=== PATIENT | male | born 1990 | race American Indian/Alaskan Native ===

== ENCOUNTER 2021-04-06 21:48 | Emergency (ER) | payer SELFPAY ==
[2021-04-06 22:26] VITALS: BP 133/75
--- NOTE | 2021-04-07 00:56 | Emergency Department Report ---
ED Laceration HPI - HPI Chief Complaint: Wound/Laceration Stated Complaint: CUT ON HAND Time Seen by Provider: 04/07/21 00:27 Occurred When: Today Location: Upper Extremity Severity: mild Tetanus Status: Up to Date Laceration Symptoms: Yes Pain, No Numbness, No Weakness Other History: 31-year-old male was utilizing abdomen a camera tract resulting in a laceration to his right hand between the first and second phalanges. ED Review of Systems ROS: Stated complaint: CUT ON HAND Other details as noted in HPI Comment: All other systems reviewed and negative ED Past Medical Hx - Past Medical History Previous Medical History?: No - Surgical History Past Surgical History?: Yes Additional Surgical History: r acl 2020 Laceration Physical Exam - Exam General: Vital signs noted. No distress. Alert and acting appropriately. Wound Length (cm): 2 Laceration Location: Upper Extremity Full Body Front + Back: 1 - Laceration to the right hand between the second and first phalange Laceration Exam: Yes Normal Distal CMS, No Foreign Body, No Exposed Tendon, Vessel, or Nerve, No Tendon Injury ED Course Vital Signs 04/06/21 22:25 Pulse Rate 79 Blood Pressure 133/75 O2 Sat by Pulse 98 Oximetry Critical care attestation.: If time is entered above; I have spent that time in minutes in the direct care of this critically ill patient, excluding procedure time. ED Disposition Clinical Impression: Laceration of right hand Disposition: 01 HOME / SELF CARE / HOMELESS Is pt being admited?: No Does the pt Need Aspirin: No Condition: Stable Instructions: Laceration Care, Adult, Sutured Wound Care Additional Instructions: Please please follow-up with the primary care provider in 7 to 10 days to be evaluated for possible suture removal Referrals: [facility] [Provider Group] - 3-5 Days
== END 2021-04-07 03:01 | disposition home or self-care (01) ==
LOC: ED 21:48
DX: S61.210A Laceration without foreign body of right index finger without damage to nail, initial encounter (principal); S61.011A Laceration without foreign body of right thumb without damage to nail, initial encounter; Z98.890 Other specified postprocedural states; W45.8XXA Other foreign body or object entering through skin, initial encounter; Y93.89 Activity, other specified; Y92.89 Other specified places as the place of occurrence of the external cause; Y99.8 Other external cause status
CPT/HCPCS: 99281